=== PATIENT | female | born 1965 | race Caucasian/White ===

== ENCOUNTER 2024-03-24 09:20 | Emergency (ER) | payer OTHER, SELFPAY ==
[2024-03-24 09:21] VITALS: BP 189/110
--- NOTE | 2024-03-24 10:21 | ED.GENMED ---
History of Present Illness
General
Chief Complaint: Flank Pain
Source: patient
Exam Limitations: none
Time Seen by Provider: 03/24/24 10:11
Travel History
Have you had any contact with someone who has COVID-19?: No
Do you have any symptoms of coronavirus? Fever > 100 degrees, chills, cough, shortness of breath, sore throat, loss of taste or smell, muscle aches, or headache?: No
History of Present Illness
History of Present Illness:
See MDM
Past History
Past History
ED Past Medical History: Fibromyalgia, HTN and Other (Hypothyroidism questionable autoimmune disorder)
ED Past Surgical History: Orthopedic
Social History
Tobacco: Smoker
Personal: Single
Living: with family
Employment: Employed
Phy Exam
Physical Exam
Physical Exam:
See MDM
Course
Orders/Labs/Results
Orders:
Orders
03/24/24 10:20
HYDROmorphone [Dilaudid] 1 mg IM NOW STA
Ketorolac [Toradol] 30 mg IM NOW STA
03/24/24 10:21
CT Abd/pel Without Iv Or Oral Urgent
Comment:
Reason For Exam: left flank pain
03/24/24 10:26
Urinalysis Reflex To Culture Urgent
Date Specimen was Collected: 03/24/24
Time Specimen was Collected: 10:23
Urine Microscopic Reflex Cult Urgent
Abnormal Lab Results
03/24/24
10:26
Ur Occult Blood Reflex Trace A
(Negative)
Leukocyte Esterase Rfl Trace A
(Negative)
Vital Signs
Initial and Last Documented VS:
Initial Vital Signs
Temp Pulse Resp BP Pulse Ox
98.1 F 64 20 189/110 100
03/24/24 09:21 03/24/24 09:21 03/24/24 09:21 03/24/24 09:21 03/24/24 09:21
Last Documented Vital Signs
Temp Pulse Resp BP Pulse Ox
98.1 F 58 18 188/106 100
03/24/24 09:21 03/24/24 10:26 03/24/24 10:26 03/24/24 10:26 03/24/24 10:26
MDM/Problems Addressed
Differential Diagnosis Includes:
HPI and MDM Narrative:
58-year-old female presenting with left flank pain. She noticed it when she was bending over. She initially thought it could be related to hip strain. She has ongoing hip problems. However, patient states the pain is in her left flank and
radiating to her left groin. She is now unsure if she has a kidney stone or not. She denies rashes. Did have mild dysuria yesterday
On exam, patient walks without difficulty. She does have left flank pain that radiates to her left groin. The left hip joint is stable. Will obtain CT to rule out kidney stone pathology and will obtain urinalysis.
Physical exam
General: Mildly uncomfortable
HEENT: protecting airway
Neck: appears supple
CV: No evidence of cyanosis
Resp: No accessory muscle use
Abd: Non-distended. Mild left lower quadrant tenderness
Extremities: No deformities. Left hip joint stable
Neuro: alert
Psych: Normal affect
Skin: Intact
Problems Addressed including Acute and Chronic Conditions affecting care:
1. Left flank pain
Acuity: acute
Prognosis: stable
Details: Will obtain CT and urinalysis. Patient given Dilaudid and Toradol IM
Updates
CT negative for acute pathology. Urine negative for infection. Patient feeling better. Patient believes she needs a muscle relaxant as this has helped in the past.
Patient feels comfortable going home
Differential Diagnosis (but not limited to): Kidney stone, pyelonephritis, diverticulitis, muscle strain
Testing considered: Blood work
Drug therapy (if applicable): OTC meds, please see d/c instruction regarding Rx drugs
Amount and/or Complexity of Data Reviewed
Clinical info obtained from: Patient
External data reviewed: N/A
Labs I independently reviewed (but not limited to): Urinalysis negative
Radiology: The CT scan was personally and independently reviewed. In addition, official CT report reviewed.
Pulse Ox: not hypoxic
EKG independently reviewed: N/A
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
Critical Care: N/A
Risk of Complication:
Social Determinants of health: Good social support
Discussed with other providers: N/A
Escalation of Care includes Admit/Obs: After being observed in the Emergency Department, pt stable for discharge.
Occasional wrong word or 'sound a like' substitutions may have occurred due to the inherent limitations of voice recognition software. Read the chart carefully and recognize, using context, where substitutions have occurred.
*Critical Care Note
Total Time (30-74mins, 75-104mins- exclusive of procedures): Not Applicable
ED Attending Note
-
Portions of this chart may have been created with voice recognition software.� Occasional wrong word or��sound alike� substitutions may have occurred due to the inherent limitations of voice recognition software.
Discharge Plan
Departure
Patient Disposition: Home (Routine Discharge)
Date of Disposition: 03/24/24
Time of Disposition: 12:14
Patient with high blood pressure during this ER visit?: Yes
Discharge Problem:
Acute flank pain
Instructions: Flank Pain (DC), BLOOD PRESSURE
Prescriptions:
New
cyclobenzaprine 10 mg Tablet
10 mg PO TIDPRN PRN (Reason: muscle spasm) Qty: 15 0RF
oxycodone 5 mg tablet
5 mg PO Q8H PRN (Reason: Pain) Qty: 10 0RF
No Action
atenolol 50 MG tablet
50 mg PO DAILY
duloxetine 60 MG capsule,delayed release(DR/EC)
120 mg PO DAILY
levothyroxine [Synthroid] 150 MCG tablet
125 mcg PO DAILY
benzonatate 100 MG capsule
100 mg PO TIDPRN PRN (Reason: cough)
cyclobenzaprine 10 MG tablet
10 mg PO HSPRN PRN (Reason: spasm) Qty: 14 0RF
oxycodone-acetaminophen 5 MG/325 MG tablet
1 tab PO Q6HPRN PRN (Reason: pain) Qty: 14 0RF
Referrals:
Talia Huertas CRNP [Family Provider] -
Activity Restrictions/Additional Instructions:
Please return for any worsening symptoms.
You may return at any time if you have further concerns.
Please follow up with your doctor at the first available appointment, preferably this week.
You were given a prescription for narcotics. If you require this pain medicine, please take a daily gazo-xoy-nnuodys stool softener to avoid constipation.
Do not take the Flexeril and oxycodone together.
Thank you for choosing [facility] [place].
Interventions
Interventions:
*Risk Screen - Suicide Last Done: 03/24/24 09:21
*General Assessment Last Done: 03/24/24 09:21
*Neglect/Abuse Screening Last Done: 03/24/24 09:21
ED- Fall Risk Assessment Last Done: 03/24/24 10:22
TB-Ksszuv-Gguhmheeyq Assessment Last Done: 03/24/24 10:22
ED-Female Genitourinary Assessment Last Done: 03/24/24 10:22
Discharge Date and Time
Print Language: KHMER
[2024-03-24 10:25] VITALS: BMI 26.5
[2024-03-24 10:26] VITALS: BP 188/106
[2024-03-24] MEDS: TORADOL 30 MG IM (10:28)
[2024-03-24] MEDS: DILAUDID 1 MG IM (10:28)
[2024-03-24 10:46] LABS: Urine Albumin Negative (Neg - Trace); Urine Bilirubin Negative (Negative); Urine Character Clear (Clear); Urine Color Yellow; Urine Glucose Negative (Negative); Urine Ketone Negative (Negative); Urine Leukocyte Trace (Negative); Urine Nitrite Negative (Negative); Urine Occult Blood Trace (Negative); Urine Urobilinogen Negative (Neg - 1+)
[2024-03-24 11:42] LABS: Urine Mucus Few
[2024-03-24 11:46] LABS: Urine Amorphous Seen
[2024-03-24 11:47] LABS: Urine Red Blood Cell 0-2 /HPF (0-2); Urine White Cell 0-2 /HPF (0-5)
[2024-03-24 12:38] VITALS: BP 168/80
== END 2024-03-24 12:40 | disposition home or self-care (01) ==
LOC: EMR 09:20
PROVIDERS: EMERGENCY PHYSICIAN Student in an Organized Health Care Education/Training Program; FAMILY PHYSICIAN Nurse Practitioner Family
DX: R10.9 Unspecified abdominal pain (principal); E03.9 Hypothyroidism, unspecified; M79.7 Fibromyalgia; I10 Essential (primary) hypertension; F17.200 Nicotine dependence, unspecified, uncomplicated
CPT/HCPCS: 99284; 96372; 74176; 81003; 81015